=== PATIENT | male | born 1970 | race Caucasian/White ===

== ENCOUNTER → 2021-03-12 12:42 | Outpatient (CLI) | payer BC, SELFPAY ==
--- NOTE | ~2021-03-12 | US_ITS ---
US soft tissue groin LT 03/12/2021 13:08 Indication: Inguinal pain. Procedure: High-resolution ultrasound of the left inguinal region Comparison: No prior studies for comparison. Findings: Normal heterogeneous soft tissue in the left inguinal region. No evidence for inguinal coy ia. No abnormal masses or fluid collections. Impression: 1: Normal limited soft tissue of the left inguinal soft tissues. Reviewed, dictated and finalized at location B. RD [facility] Impression: 1: Normal limited soft tissue of the left inguinal soft tissues.
== END ==
PROVIDERS: PCP Family Medicine; Visit Provider Family Medicine
DX: R10.2 Pelvic and perineal pain (principal)
CPT/HCPCS: 76882